=== PATIENT | female | born 1940 | race African-American/Black ===

== ENCOUNTER → 2016-12-16 | Outpatient (CLI) | payer MEDICARE ==
[~2016-12-16] MED LIST: ASPI-482 PO; DILT180C29 PO; ESOM40CA PO; FENO145T PO; IOHEXOL 180 MG/ML 10 ML VIAL. ONE; LOSA25TA4 PO; METF500T4 PO; NAPR220C4 PO; TRAM50TA PO; TRIA1CAP3 PO; methylPREDNISolone ACETATE 40 MG/ML VIAL. ONE; methylPREDNISolone ACETATE 80 MG/ML VIAL. ONE
--- NOTE | 2016-12-17 06:46 | PAIN ---
DATE OF SERVICE: 12/16/2016 DIAGNOSES: Lumbar radiculopathy with lumbar degenerative disk disease and lumbar spinal stenosis. HISTORY OF PRESENT ILLNESS: The patient is a 76-year-old female who returns for followup, last seen in 04/2016. The patient did very well after lumbar epidural steroid injection at that time with about 50% improvement overall. Initially 75%, but now about 50%, and is returning to baseline over the past 2 months or so. The patient reports it is worse with standing and walking; pain across the low back into the bilateral lower extremities, mostly in the lateral and anterior thighs, medial thighs, and into the medial lower legs as well and the knees. The patient reports it is worse with standing, walking, and changing positions. It is aching and dull. She rates 2 to 3 on a scale of 10 currently. It can be as high as an 8 or 9 with the extended walking or standing greater than about 10 to 15 minutes. The patient reports it awakens her from sleep at night, does not affect her bowel or bladder control. No new bowel or bladder incontinence. No new motor or sensory deficits, but significant weakness with the lower extremities, somewhat worse on the right than the left with standing and walking, easy fatigability bilaterally without complete loss of function. The patient reports no new changes. No new bowel or bladder incontinence. PAST MEDICAL HISTORY: Significant for type 2 diabetes, hypertension, arthritis, and recurrent urinary tract infections. PREVIOUS SURGERY: Include hysterectomy. CURRENT MEDICATIONS: Include triamterene, tramadol, Aleve, metformin, Tricor, and diltiazem. ALLERGIES: The patient has no known drug allergies. FAMILY HISTORY: Significant for diabetes, liver disease, strokes, asthma, tuberculosis, heart disease, emphysema, and psychiatric issues. SOCIAL HISTORY: The patient does not smoke, does not drink alcohol. She is retired and lives locally. REVIEW OF SYSTEMS: The patient's review of systems is positive for what is mentioned in history of present illness. All systems were reviewed and otherwise negative. It is complete, full, and well documented on the patient's chart. PHYSICAL EXAMINATION: VITAL SIGNS: Today, blood pressure 136/83, pulse 80, respirations 18, and temperature 97.9 degrees Fahrenheit. Height is 5 feet 2 inches. Weight is 153 pounds. GENERAL: The patient is awake, alert, oriented, appropriate, and very pleasant demeanor. HEENT: Head shows normocephalic, atraumatic. Extraocular movements are intact and symmetrical. The patient wears eyeglasses. Oral cavity, mucous membranes are moist and pink. Dentition is intact. NECK: Shows anterior throat supple without palpable lymphadenopathy noted. Swallow reflex is symmetrical. Neck shows full rotational motion of the cervical spine without difficulty or tenderness including extension and flexion. CHEST: Shows normal on inspection. Breath sounds are clear to auscultation bilaterally. HEART: Shows S1 and S2 clear. No murmurs are auscultated. ABDOMEN: Obese, soft, nontender, and nondistended. No palpable organomegaly is noted. No rebound or guarding demonstrated. BACK: Shows spine grossly midline. Slight exaggeration of thoracic kyphosis and some mild flattening of lumbar lordotic curvature. No previous bruises, lesions, rashes or scars are noted. Lumbar paraspinous musculature shows symmetrical on inspection with palpation. It is moderately tender with palpation diffusely in the low and mid lumbar distribution bilaterally without radiation, without trigger points, and some mild tenderness with palpation over the spinous processes in the lower lumbar distribution, but not over the sacrum or the sacroiliac regions. The patient shows good rotational motion both laterally greater than 10 degrees right and left as well as extension greater than 10 degrees, and forward flexion 45 degrees lumbar spine without significant pain reported. Lower extremities show deep tendon reflexes at 1+ in the patellar, and tendo-calcaneus tendons are equal. Motor exam is strong with dorsiflexion and extension rated at 5 out of 5 and equal, as is quadriceps and hamstring flexion. Peripheral pulses are 1+, posterior tibial and dorsalis pedis pulses. No peripheral edema is noted. No clubbing, no cyanosis. Lower extremities are warm and dry to touch, equal in color and appearance. Straight leg raise noted to be positive bilaterally with pain only in the lateral thighs at about 45 degrees, but is decreased with knee flexion. Gaenslen's and Seamus's maneuvers are negative bilaterally as well. The patient is able to stand, stand on her toes without significant difficulty and walks with a normal-appearing gait, not using any assistive devices such as canes or walkers to ambulate. Options were discussed with the patient. The patient's old chart was reviewed as her current medication regimen was updated. Current review of systems was updated today as well, as noted. We will plan on a lumbar epidural steroid injection today with fluoroscopic guidance, as she did very well with these in the past. Risks were again discussed including, but not limited to bleeding, infection, possibility of epidural hematoma, subsequent neurologic compromise, dural puncture, headaches, spinal cord and/or nerve damage, side effects of steroid medication, and poor results regarding pain control. The patient understands and wishes to proceed. The patient will return to clinic in approximately 2 weeks for followup, was counseled on return appointment, activity level, and side effects to be aware of. DIAGNOSIS: Lumbar radiculopathy with lumbar degenerative disk disease and lumbar spinal stenosis. PROCEDURE: Lumbar epidural steroid injection in translaminar approach at the L4-L5 level using C-arm fluoroscopic guidance under sterile prep and drape using local anesthetic. MEDICATIONS INJECTED: 120 mg Depo-Medrol plus 10 mL of preservative-free normal saline and 2 mL of Isovue contrast. CONDITION AT DISCHARGE: Stable. The patient tolerated the procedure well and had no complications. MARIANNA TELLEZ MD DR: MONROE/bean JOB#: [id number] / [id number]
== END | disposition home or self-care (01) ==
LOC: PNCL 08:33
PROVIDERS: ATTEND Anesthesiology
DX: M51.16 Intervertebral disc disorders with radiculopathy, lumbar region (principal); E11.9 Type 2 diabetes mellitus without complications; I10 Essential (primary) hypertension; M19.90 Unspecified osteoarthritis, unspecified site; N39.0 Urinary tract infection, site not specified
CPT/HCPCS: 62323; J1030; J1040

== ENCOUNTER → 2017-05-26 | Outpatient (CLI) | payer MEDICARE ==
--- NOTE | 2017-05-26 09:49 | PAIN ---
DATE OF SERVICE: 05/26/2017 DIAGNOSES: Lumbar radiculopathy with lumbar degenerative disk disease, lumbar spinal stenosis. HISTORY OF PRESENT ILLNESS: The patient is a 76-year-old female who returns for followup status post lumbar epidural steroid injection x 1, last seen 12/16/2016. The patient reports she did very well with the injection with about 75% improvement initially and now about 50% improvement overall. The pain in the low back and bilateral lower extremities, left greater than right. The patient reports increasing with activity, standing and walking, changing positions, has been waking her from sleep occasionally, but not every night. The patient also has some insomnia, which keeps her up, but not from the pain. The patient reports the pain is sharp and aching and also radiating and tingling. Also has some tingling in the left foot greater than the right. The patient reports the pain about a 3 on a scale of 10 at its worst. The patient reports no new motor or sensory deficits, also some shoulder pain and tingling in her arms. She is seeing her primary care physician for this next week and believes it is due to some of her peripheral diabetic neuropathy. PHYSICAL EXAMINATION: VITAL SIGNS: The patient's blood pressure is 187/104, pulse 88, respirations 20, temperature 98.0 degrees Fahrenheit, height is 5 feet 2 inches, weight 155 pounds. GENERAL: The patient is awake, alert, oriented, appropriate, very pleasant demeanor. HEENT: Head shows normocephalic, atraumatic. Extraocular movements are intact, symmetrical. Oral cavity, mucous membranes are moist and pink. The patient wears eyeglasses. NECK: Shows anterior throat supple without palpable lymphadenopathy noted. Swallow reflex is symmetrical. Neck shows full rotational motion of the cervical spine without difficulty or tenderness including extension and flexion. CHEST: Shows normal on inspection. Breath sounds are clear to auscultation bilaterally. HEART: Shows S1 and S2 clear. No murmurs auscultated. ABDOMEN: Soft, obese, nontender, nondistended. No palpable organomegaly is noted. BACK: Shows spine grossly midline. Slight exaggeration of thoracic kyphosis with a normal appearing lumbar lordotic curvature. Lumbar paraspinous musculature shows symmetrical on inspection. Palpation shows some moderate tenderness and firm musculature throughout the upper, middle and lower distribution of paraspinous muscles diffusely tender, but only to a moderate extent bilaterally without radiation. The patient shows good rotational motion of the lumbar spine, both laterally as well as extension and flexion without difficulty. No tenderness over the sacrum or sacroiliac regions with palpation. LOWER EXTREMITIES: Show deep tendon reflexes 1+ in the patellar and tendo calcaneus tendons are equal. Motor exam is strong with 5/5 dorsiflexion, extension, quadriceps and hamstring flexion are symmetrical. Peripheral pulses are 1+ posterior tibial and dorsalis pedis pulses. Options were discussed with the patient and the patient's old chart was reviewed. Current medication list updated. Current review of systems updated today as well. We will proceed with a lumbar epidural steroid injection second in this series with fluoroscopic guidance. Risks were again discussed including, but not limited to bleeding, infection, possibility of epidural hematoma, subsequent neurologic compromise, dural puncture, headaches, spinal cord and/or nerve damage, side effects of steroid medication and poor results regarding pain control. The patient understands and wishes to proceed. The patient will return to clinic in approximately 2 weeks for followup, was counseled on return appointment, activity level and side effects to be aware of. DIAGNOSIS: Lumbar radiculopathy with lumbar degenerative disk disease, lumbar spinal stenosis. PROCEDURE: Lumbar epidural steroid injection in translaminar approach at the L4-L5 level using C-arm fluoroscopic guidance under sterile prep and drape using local anesthetic. MEDICATION INJECTED: 120 mg Depo-Medrol plus 10 mL of preservative-free normal saline, 2 mL of Isovue contrast. The patient discharged in stable. The patient tolerated the procedure well, had no complications. MARIANNA TELLEZ MD DR: MONROE/bean JOB#: [id number] / [id number]
== END | disposition home or self-care (01) ==
LOC: PNCL 07:59
PROVIDERS: ATTEND Anesthesiology
DX: M51.16 Intervertebral disc disorders with radiculopathy, lumbar region (principal); M48.06 Spinal stenosis, lumbar region
CPT/HCPCS: 62323; J1030; J1040

== ENCOUNTER → 2018-02-14 | Outpatient (CLI) | payer MEDICARE ==
[~2018-02-14] MED LIST changes: -ASPI-482 PO; -DILT180C29 PO; -ESOM40CA PO; -FENO145T PO; +IOHEXOL 180 MG/ML 10 ML VIAL.; -IOHEXOL 180 MG/ML 10 ML VIAL. ONE; -LOSA25TA4 PO; -METF500T4 PO; -NAPR220C4 PO; -TRAM50TA PO; -TRIA1CAP3 PO; +methylPREDNISolone ACETATE 40 MG/ML VIAL.; -methylPREDNISolone ACETATE 40 MG/ML VIAL. ONE; +methylPREDNISolone ACETATE 80 MG/ML VIAL.; -methylPREDNISolone ACETATE 80 MG/ML VIAL. ONE
== END ==
LOC: PNCL 10:11
DX: M51.16 Intervertebral disc disorders with radiculopathy, lumbar region (principal); M48.061 Spinal stenosis, lumbar region without neurogenic claudication
CPT/HCPCS: 62323; J1030; J1040; Q9965

== ENCOUNTER → 2018-04-18 | Outpatient (CLI) | payer MEDICARE ==
[~2018-04-18] MED LIST changes: +LIDOCAINE 1% PF 2 ML VIAL.
== END | disposition home or self-care (01) ==
LOC: PNCL 10:52
DX: M51.16 Intervertebral disc disorders with radiculopathy, lumbar region (principal); M48.061 Spinal stenosis, lumbar region without neurogenic claudication
CPT/HCPCS: 62323; J1030; J1040; Q9965

== ENCOUNTER → 2018-08-15 | Outpatient (CLI) | payer MEDICARE ==
[~2018-08-15] MED LIST changes: +ASPI-482 PO; +ATOR10TA60 PO; +DILT180C29 PO; +ESOM40CA PO; +FENO145T PO; -IOHEXOL 180 MG/ML 10 ML VIAL.; +IOHEXOL 180 MG/ML 10 ML VIAL. ONE; -LIDOCAINE 1% PF 2 ML VIAL.; +LIDOCAINE 1% PF 2 ML VIAL. ONE; +LOSA25TA5 PO; +METF500T16 PO; +NAPR220C4 PO; +TRAM50TA PO; +TRIA1CAP3 PO; -methylPREDNISolone ACETATE 40 MG/ML VIAL.; +methylPREDNISolone ACETATE 40 MG/ML VIAL. ONE; -methylPREDNISolone ACETATE 80 MG/ML VIAL.; +methylPREDNISolone ACETATE 80 MG/ML VIAL. ONE
--- NOTE | 2018-08-16 05:15 | PAIN ---
DATE OF SERVICE: 08/15/2018 DIAGNOSES: Lumbar radiculopathy with lumbar degenerative disk disease and lumbar spinal stenosis. HISTORY OF PRESENT ILLNESS: The patient is a 77-year-old female, returns for followup status post lumbar epidural steroid injection x 2, last seen in 04/18/2018. The patient did very well with about 50% improvement for the first 2 months. The patient reports the pain has been returning now in the low back and the right lower extremity, mostly in the posterior and lateral thigh, lateral anterior thigh, medial thigh to the knee on the right side. The patient reports it is an 8 on a scale of 10 at its worst, 5 on average, 4 at its least and is a 4 today. The patient reports she was initially increasing her activity with greater ease and comfort, walking greater distances, able to get around better, doing things at home with greater ease and comfort. The patient reports she has been able to sleep at night. The pain does not awaken her from sleep, although she does have some insomnia. The patient reports no new motor or sensory deficits. No new bowel or bladder incontinence. The patient reports the pain is sharp, also aching and shooting in the right leg. PHYSICAL EXAMINATION: VITAL SIGNS: The patient's blood pressure is 132/86, pulse 84, respirations 16, temperature 99.3 degrees Fahrenheit, weight is 146 pounds. GENERAL: The patient is awake, alert, oriented, appropriate, very pleasant demeanor. HEENT: Shows normocephalic, atraumatic. Extraocular movements are intact and symmetrical. Oral cavity: Mucous membranes moist and pink. Dentition is intact. NECK: Shows anterior throat supple without palpable lymphadenopathy noted. Swallow reflex is symmetrical. CHEST: Shows normal with inspection. Breath sounds are clear to auscultation bilaterally. HEART: Shows S1, S2 clear. No murmurs auscultated. ABDOMEN: Soft, nontender, nondistended. No palpable organomegaly is noted. No rebound or guarding demonstrated. BACK: Shows spine grossly in the midline. Normal appearing thoracic kyphosis, some minor flattening of lumbar lordotic curvature. Lumbar paraspinous muscle shows symmetrical on inspection. On palpation shows some moderate tenderness diffusely with palpation in the low lumbar distribution without radiation, without trigger points. EXTREMITIES: The patient's lower extremities show deep tendon reflexes at 1+ in the patellar and tendo calcaneus tendons. Motor exam is strong with 5/5 dorsiflexion, extension, quadriceps and hamstring flexion and symmetrical. Peripheral pulses are 1+ posterior tibia. No peripheral edema is noted bilaterally. Options were discussed with the patient. The patient's old chart was reviewed as is her current medication regimen updated. Current review of systems is updated today as well. We will proceed with a third in the series of lumbar epidural steroid injection today with fluoroscopic guidance. Risks were again discussed including, but not limited to bleeding, infection, possibility of epidural hematoma and subsequent neurological compromise, dural puncture, headaches, spinal cord and/or nerve damage, side effects of steroid medication and poor results regarding pain control. The patient understands and wished to proceed. The patient will return to the clinic in approximately 2 weeks for followup, was counseled on return appointment, activity level and side effects to be aware of. DIAGNOSIS: Lumbar radiculopathy with lumbar degenerative disk disease, lumbar spinal stenosis. PROCEDURE: Lumbar epidural steroid injection, translaminar approach at the L4-L5 level using C-arm fluoroscopic guidance under sterile prep and drape using local anesthetic. MEDICATION INJECTED: A total of 120 mg Depo-Medrol plus 10 mL of preservative-free normal saline and 2 mL of Isovue for contrast. CONDITION AT DISCHARGE: Stable. The patient tolerated the procedure well, had no complications. MARIANNA TELLEZ MD DR: MONROE/bean JOB#: [id number] / [id number]
== END | disposition home or self-care (01) ==
LOC: PNCL 11:41
PROVIDERS: ATTEND Anesthesiology
DX: M51.16 Intervertebral disc disorders with radiculopathy, lumbar region (principal); M48.061 Spinal stenosis, lumbar region without neurogenic claudication
CPT/HCPCS: 62323; J1030; J1040; Q9965

== ENCOUNTER → 2018-12-26 | Outpatient (CLI) | payer MEDICARE ==
[~2018-12-26] MED LIST changes: -LIDOCAINE 1% PF 2 ML VIAL. ONE; -LOSA25TA5 PO; +LOSA25TA54 PO
--- NOTE | 2018-12-26 21:41 | PAIN ---
DATE OF SERVICE: 12/26/2018 PROGRESS NOTE FOR PAIN CLINIC DIAGNOSES: Lumbar radiculopathy with lumbar degenerative disk disease and lumbar spinal stenosis. HISTORY OF PRESENT ILLNESS: The patient is a 78-year-old female who returns for followup status post lumbar epidural steroid injections, most recently on 08/15/2018. The patient did very well. There was about a 75% improvement. The patient reports it is still helping to some extent with the pain returning in the low back, right lower extremity, mostly in the posterior gluteus, posterolateral thigh, lateral anterior thigh, medial thigh and to the knee on the right side. The patient reports it is a 5 on a scale of 10 at its worst, 4 on average and 3 at its least and is a 4 today. The patient reports it is sharp, aching, sometimes dull and shooting, can be throbbing and stabbing as well, radiating, worse with walking, standing and changing positions and better with sitting or lying down. It does not awaken her from sleep, but she had difficulty sleeping besides the pain and not from it. The patient reports no new motor or sensory deficits, no new bowel or bladder incontinence or other complaints. PHYSICAL EXAMINATION: VITAL SIGNS: The patient's blood pressure 151/91, pulse 91, respirations 18, temperature 98.5 degrees Fahrenheit and weight is 144 pounds. GENERAL: The patient is awake, alert, oriented, appropriate, very pleasant demeanor. HEENT: Head shows normocephalic and atraumatic. Extraocular movements are intact and symmetrical. Oral cavity: Mucous membranes are moist and pink. Dentition is intact. NECK: Shows anterior throat is supple without palpable lymphadenopathy noted. Swallow reflex is symmetrical. CHEST: Shows normal on inspection. Breath sounds are clear to auscultation bilaterally. HEART: Shows S1 and S2 clear. No murmurs are auscultated. ABDOMEN: Soft, nontender and nondistended. No palpable organomegaly is noted. No rebound or guarding demonstrated. BACK: Shows spine grossly in the midline. Normal appearing thoracic kyphosis and lumbar lordotic curvature slightly flattened. Lumbar paraspinous muscle shows symmetrical on inspection. On palpation shows some moderate tenderness diffusely in the bilateral lower lumbar paraspinous musculature without radiation. The patient has good rotational motion of the lumbar spine both laterally as well as extension and flexion without significant difficulty. EXTREMITIES: Lower extremities show deep tendon reflexes at 1+ in the patellar and tendo calcaneus tendons are equal. Motor exam is strong with a 5/5 dorsiflexion, extension, quadriceps and hamstring flexion and symmetrical. Peripheral pulses are 1+ posterior tibial. No peripheral edema is noted. Options were discussed with the patient. The patient's old chart was reviewed as was her current medication regimen updated. Current review of systems updated today as well. We will proceed with a first in the series of lumbar epidural steroid injections under fluoroscopic guidance. Risks were again discussed including, but not limited to bleeding, infection, possibility of epidural hematoma, subsequent neurological compromise, dural puncture, headaches, spinal cord and/or nerve damage, side effects of steroid medication and poor results regarding pain control. The patient understands and wished to proceed. The patient will return to the clinic in approximately 2 weeks for followup, was counseled as to return appointment, activity level and side effects to be aware of. DIAGNOSIS: Lumbar radiculopathy with lumbar degenerative disk disease and lumbar spinal stenosis. PROCEDURE: Lumbar epidural steroid injection, translaminar approach at L4-L5 level using C-arm fluoroscopic guidance under sterile prep and drape using local anesthetic. MEDICATION INJECTED: A total of 120 mg Depo-Medrol plus 10 mL of preservative-free normal saline and 2 mL of Isovue for contrast. CONDITION AT DISCHARGE: Stable. The patient tolerated the procedure well and had no complications. MARIANNA TELLEZ MD DR: MONROE/bean JOB#: [id number] / [id number]
== END | disposition home or self-care (01) ==
LOC: PNCL 08:27
PROVIDERS: ATTEND Anesthesiology
DX: M51.16 Intervertebral disc disorders with radiculopathy, lumbar region (principal); M48.061 Spinal stenosis, lumbar region without neurogenic claudication
CPT/HCPCS: 62323; J1030; J1040; Q9965

== ENCOUNTER → 2019-06-25 | Outpatient (CLI) | payer MEDICARE ==
--- NOTE | 2019-06-25 09:36 | PAIN ---
DATE OF SERVICE: 06/25/2019 PROGRESS NOTE FOR PAIN CLINIC DIAGNOSES: Lumbar radiculopathy with lumbar spinal stenosis, lumbar degenerative disk disease. HISTORY OF PRESENT ILLNESS: The patient is a 78-year-old female who returns for followup status post lumbar epidural steroid injection, last seen 12/26/2018. The patient did very well, about 75% improvement for the first 3 months or so, then the pain again returned in the low back and right lower extremity, mostly in the posterior gluteus, posterolateral thigh, lateral anterior thigh, medial thigh and the medial lower leg. The patient reports it is worse with walking, standing, changing positions, better with sitting or lying down. The patient reports no new motor or sensory deficits, does not awaken her from sleep at night. The patient rates her pain as a 4 on a scale of 10 on average, 7 at its worst and a 2 at its least and is a 2 today. The patient reports it is stabbing and aching across the low back into the right leg. The patient reports no new motor or sensory deficits, no new bowel or bladder incontinence or other complaints. PHYSICAL EXAMINATION: VITAL SIGNS: The patient's blood pressure is 143/76, pulse 74, respirations are 18, temperature 98.2 degrees Fahrenheit, height is 5 feet 2 inches, weighs 147 pounds. GENERAL: The patient is awake, alert, oriented, appropriate, very pleasant demeanor. HEENT: Head shows normocephalic, atraumatic. Extraocular movements are intact and symmetrical. Oral cavity: Mucous membranes moist and pink. Dentition is intact. NECK: Shows anterior throat supple. Swallow reflex symmetrical. Neck shows full rotational motion of cervical spine. CHEST: Shows normal on inspection. Breath sounds are clear bilaterally. HEART: Shows S1, S2 clear. No murmurs auscultated. ABDOMEN: Soft, nontender, nondistended. BACK: Shows spine grossly in the midline. Slight exaggeration of thoracic kyphosis, minor flattening of lumbar lordotic curvature. Lumbar paraspinous muscle shows symmetrical on inspection, with palpation shows some moderate tenderness diffusely bilaterally, but only diffusely without radiation. The patient has good rotational motion of lumbar spine, both laterally as well as extension and flexion without significant difficulty. EXTREMITIES: Lower extremities show deep tendon reflexes at 1+ in the patellar and tendo calcaneus tendons. Motor exam is strong with 5/5 dorsiflexion, extension, quadriceps and hamstring flexion symmetrical. Peripheral pulses are 1+ posterior tibia. No peripheral edema is noted. Options were discussed with the patient. The patient's old chart was reviewed as her current medication regimen updated. Current review of systems updated today as well. We will proceed with a first in a series of lumbar epidural steroid injection today with fluoroscopic guidance. Risks were again discussed including, but not limited to bleeding, infection, possibility of epidural hematoma, subsequent neurological compromise, dural puncture, headaches, spinal cord and/or nerve damage, side effects of steroid medication and poor results regarding pain control. The patient understands and wished to proceed. The patient will return to clinic in approximately 2 weeks for followup. She was counseled on return appointment, activity level and side effects to be aware of. DIAGNOSES: Lumbar radiculopathy with lumbar degenerative disk disease and lumbar spinal stenosis. PROCEDURE: Lumbar epidural steroid injection, translaminar approach L4-L5 level using C-arm fluoroscopic guidance under sterile prep and drape using local anesthetic. MEDICATION INJECTED: The patient received a total of 120 mg Depo-Medrol plus 10 mL of preservative-free normal saline and 2 mL of contrast. CONDITION AT DISCHARGE: Stable. The patient tolerated procedure well, had no complications. MARIANNA TELLEZ MD DR: MONROE/bean JOB#: [id number] / [id number]
== END ==
LOC: PNCL 08:29
PROVIDERS: ATTEND Anesthesiology
DX: M51.16 Intervertebral disc disorders with radiculopathy, lumbar region (principal); M48.061 Spinal stenosis, lumbar region without neurogenic claudication
CPT/HCPCS: 62323; J1030; J1040; Q9965

== ENCOUNTER → 2019-12-07 | Outpatient (CLI) | payer MEDICARE ==
--- NOTE | 2019-12-07 12:50 | PAIN ---
DATE OF SERVICE: 12/07/2019 PROGRESS NOTE FOR PAIN CLINIC DIAGNOSES: Lumbar radiculopathy with lumbar spinal stenosis, lumbar degenerative disk disease. HISTORY OF PRESENT ILLNESS: The patient is a 79-year-old female who returns for followup status post lumbar epidural steroid injections, most recently seen on 06/25/2019. The patient had epidural steroid injection at that time with good results about 75% improvement. The patient reports pains are returning now in the low back, especially in the right leg, posterior gluteus, posterior thigh and lateral thigh. The patient reports it is worse with walking, standing, changing positions, then returning fairly significantly for the past 2 months or so. The patient reports that initially she was doing better with greater ease in walking and standing, returning to household activities and traveling. The pains are returning now in the low back and right leg. The patient reports it is a 7 on a scale of 10 at its worst, 6 on average, 3 at its least and is a 6 today. The patient reports it is sharp and aching, shooting in the right leg, posterior gluteus and lateral thigh with weightbearing, standing and walking. The patient reports it awakens her from sleep about every 3 hours and has for the past 2 months or so. The patient reports no new motor or sensory deficits, no new bowel or bladder incontinence. PHYSICAL EXAMINATION: VITAL SIGNS: The patient's blood pressure is 137/91, pulse 90, respirations 18, temperature 99.2 degrees Fahrenheit, weight is 147 pounds. GENERAL: The patient is awake, alert, oriented, appropriate, very pleasant demeanor. HEENT: Shows normocephalic, atraumatic. Extraocular movements are intact and symmetrical. Oral cavity: Mucous membranes moist and pink. Dentition is intact. NECK: Shows anterior throat supple without palpable lymphadenopathy noted. Swallow reflex symmetrical. CHEST: Shows normal on inspection. Breath sounds clear to auscultation bilaterally. HEART: Shows S1, S2 clear. No murmurs auscultated. ABDOMEN: Soft, nontender, nondistended. No palpable organomegaly is noted. No rebound or guarding demonstrated. BACK: Shows spine grossly in the midline. Normal appearing thoracic kyphosis. Some slight flattening of lumbar lordotic curvature. Lumbar paraspinous muscle shows symmetrical on inspection, on palpation shows some moderate tenderness diffusely bilaterally going diffusely without significant radiation. EXTREMITIES: The patient's lower extremities show deep tendon reflexes at 1+ in the patellar and tendo calcaneus tendons. Motor exam is strong with 5/5 dorsiflexion, extension, quadriceps and hamstring flexion. Peripheral pulses are 1+ posterior tibia. No peripheral edema is noted. Options were discussed with the patient. The patient's old chart was reviewed as her current medication regimen updated. Current review of systems updated today as well. We will proceed with a lumbar epidural steroid injection today with fluoroscopic guidance, first in the series. Risks were again discussed including, but not limited to bleeding, infection, possibility of epidural hematoma, subsequent neurological compromise, dural puncture, headaches, spinal cord and/or nerve damage, side effects of steroid medication and poor results regarding pain control. The patient understands and wished to proceed. The patient will return to clinic in approximately 2 weeks for followup. She was counseled on return appointment, activity level and side effects to be aware of. DIAGNOSES: Lumbar radiculopathy with lumbar degenerative disk disease, lumbar spinal stenosis. PROCEDURE: Lumbar epidural steroid injection, caudal approach using C-arm fluoroscopic guidance under sterile prep and drape using local anesthetic. MEDICATION INJECTED: A total of 120 mg Depo-Medrol plus 10 mL of preservative-free normal saline and 2 mL of contrast. The patient noted to have on the first attempt at L4-L5 translaminar CSF spread of the contrast. Needle was moved to the L5-S1 with good preservative-free normal saline, loss of resistance once again and negative aspiration at the L4-L5 level, but with still spread into the cerebrospinal fluid with contrast on both these attempts, this was converted to a caudal approach with 22-gauge needle in the sacral hiatus with good epidural spread of the contrast 2 mL on caudal approach attempt without washout. Noted the patient did have a positional headache immediately following the procedure and was kept in a supine position and eventually was discharged under her own power without significant headache and with her son present to drive her home as well. MARIANNA TELLEZ MD DR: MONROE/bean JOB#: [id number] / [id number]
== END | disposition home or self-care (01) ==
LOC: PNCL 10:17
PROVIDERS: ATTEND Anesthesiology
DX: M51.16 Intervertebral disc disorders with radiculopathy, lumbar region (principal); M48.061 Spinal stenosis, lumbar region without neurogenic claudication; Z98.890 Other specified postprocedural states
CPT/HCPCS: 62323; J1030; J1040; Q9965

== ENCOUNTER → 2020-04-16 | Outpatient (CLI) | payer MEDICARE ==
--- NOTE | 2020-04-16 10:24 | PAIN ---
DATE OF SERVICE: 04/16/2020 PROGRESS NOTE FOR PAIN CLINIC DIAGNOSES: Lumbar radiculopathy with lumbar degenerative disk disease and lumbar spinal stenosis. HISTORY OF PRESENT ILLNESS: The patient is a 79-year-old female who returns for followup status post lumbar epidural steroid injection with caudal approach on 12/07/2019. The patient did very well with about 80% improvement for about the first 5 months. The patient reports pain is returning now only over the past few weeks or so. The patient reports no new motor or sensory deficits, no new changes, but still has pain in the low back, more on the right side in the posterior gluteus, lateral thigh, anterior thigh, medial thigh on the right, worse with walking, standing, changing positions. Initially, she was doing much better with distance walking, doing working and household activities with greater ease and comfort, sleeping better at night. Now, the pain is beginning to awaken her over the past week or so for about every 2-3 hours in the low back and the right leg. The patient reports she is still feeling fatigued with activity over the past week or so as well. The patient reports the pain is a 6 on a scale of 10 at its worst, average and 3 at its least and is a 6 today. The patient reports it is sharp and aching, shooting pain in the right leg at times as well with activity, but better with sitting or lying down. The patient reports no new motor or sensory deficits, no new bowel or bladder incontinence or other complaints. PHYSICAL EXAMINATION: VITAL SIGNS: The patient's blood pressure is 170/72, pulse is 81, respirations are 18, temperature 98.2 degrees Fahrenheit, height is 5 feet 2 inches, weight is 148 pounds. GENERAL: The patient is awake, alert, oriented, appropriate, very pleasant demeanor. HEENT: Shows normocephalic, atraumatic. Extraocular movements are intact and symmetrical. Oral cavity: Mucous membranes moist and pink. NECK: Shows anterior throat supple without palpable lymphadenopathy noted. Swallow reflex symmetrical. CHEST: Shows normal on inspection. Breath sounds are clear bilaterally. No rales, rhonchi or wheezes auscultated. HEART: Shows S1, S2 clear. No murmurs auscultated. ABDOMEN: Soft, obese, nontender, nondistended. BACK: Shows spine grossly in the midline. Slight exaggeration of thoracic kyphosis and some minor flattening with a lumbar lordotic curvature. Lumbar paraspinous muscle shows symmetrical on inspection, with palpation shows some diffuse tenderness throughout the upper, middle and lower distribution of paraspinous muscles bilaterally and roughly symmetrical without evidence of atrophy or hypertrophy, no asymmetry, no tenderness over the spinous processes, sacrum or sacroiliac regions. The patient has good rotational motion of lumbar spine, both laterally greater than 10 degrees right and left as well as extension past 10 degrees, forward flexion 45 degrees without increase in pain. EXTREMITIES: The patient's lower extremities show deep tendon reflexes at 1+ in the patellar and tendo calcaneus tendons. Motor exam is 5/5 with dorsiflexion, extension and equal. Peripheral pulses are 1+ posterior tibia. No peripheral edema bilaterally. Options were discussed with the patient. The patient's old chart was reviewed as her current medication regimen updated. Current review of systems updated today as well. We will proceed with a second in the series of lumbar epidural steroid injection today with fluoroscopic guidance. Risks were again discussed including, but not limited to bleeding, infection, possibility of epidural hematoma, subsequent neurological compromise, dural puncture, headaches, spinal cord and/or nerve damage, side effects of steroid medication and poor results regarding pain control. The patient understands and wished to proceed. The patient will return to clinic in approximately 2 weeks for followup. She was counseled on return appointment, activity level and side effects to be aware of. DIAGNOSES: Lumbar radiculopathy with lumbar spinal stenosis, lumbar degenerative disk disease. PROCEDURE: Lumbar epidural steroid injection, translaminar approach at the L4-L5 level using C-arm fluoroscopic guidance under sterile prep and drape using local anesthetic. MEDICATION INJECTED: A total of 120 mg Depo-Medrol plus 10 mL of preservative-free normal saline and 2 mL of contrast. CONDITION AT DISCHARGE: Stable. The patient tolerated the procedure well, had no complications. MARIANNA TELLEZ MD DR: MONROE/bean JOB#: [id number] / [id number]
== END ==
LOC: PNCL 09:26
PROVIDERS: ATTEND Anesthesiology
DX: M51.16 Intervertebral disc disorders with radiculopathy, lumbar region (principal); M48.061 Spinal stenosis, lumbar region without neurogenic claudication
CPT/HCPCS: 62323; J1030; J1040; Q9965

== ENCOUNTER → 2020-08-19 | Outpatient (CLI) | payer MEDICARE ==
--- NOTE | 2020-08-19 11:42 | PDOC ---
Progress Note - Pain Clinic Date of Service: DOS: DATE: 08/19/20 TIME: 11:38 Diagnosis: Dx: Lumbar radiculopathy with lumbar degenerative disc disease and lumbar spinal stenosis History or Present Illness: HPI: 79-year-old female returns follow-up status post lumbar epidural steroid injection x2 most recently 12/17/2019. Patient did very well with about 80% improvement initially with pain returning in the low back and the right lower extremity as it was previously posterior gluteus posterior lateral thigh lateral anterior thigh anterior medial thigh described as burning and stabbing in the low back and radiating cramping in the right leg as well. Patient reports a 7 on scale 10 is average over the past week 9 is worst and a 3 at its least is a 7 today. Patient reports no new motor or sensory deficits no new bowel or bladder incontinence or other complaints. Reports its better with sitting or laying down but can awaken her from sleep occasionally but not most nights patient reports initially she was doing much better with distance walking doing household activities try with greater ease and comfort now the pain is returning as described. Physical Exam: VS: Blood pressure is 139/64 pulse 94 respirations 18 temperature is 98.6 F height 5 feet 2 inches weight is 148 pounds PE: PHYSICAL EXAMINATION: GENERAL: The patient is awake, alert, oriented, appropriate, very pleasant demeanor HEENT: Shows normocephalic, atraumatic. Extraocular movements are intact and symmetrical. Oral cavity: Mucous membranes moist and pink. NECK: Shows anterior throat supple without palpable lymphadenopathy noted. Swal low reflex symmetrical. CHEST: Shows normal on inspection. Breath sounds are clear bilaterally, no rales rhonchi wheezes auscultated. HEART: Shows S1, S2 clear. No murmurs auscultated. ABDOMEN: Soft, nontender, nondistended, obese. No palpable organomegaly is noted. No rebound or guarding demonstrated. BACK: Shows spine grossly in the midline. Normal-appearing cervical lordotic curvature. There is slightly increased thoracic kyphosis, some minor flattening of the lumbar lordotic curvature. Lumbar paraspinous muscles show symmetrical on inspection, on palpation shows some moderate tenderness diffusely throughout the upper, middle and lower distribution of the paraspinous muscles bilaterally, without specific trigger points, without radiation of pain. The patient has good rotational motion of the lumbar spine, both laterally as well as extension and flexion without significant difficulty. No tenderness over the spinous processes, sacrum or sacroiliac regions. EXTREMITIES: Lower extremities show deep tendon reflexes 1+ in the patellar and tendo calcaneus tendons. Motor exam is 5 on a scale of 5 with right dorsiflexion, extension, quadriceps and hamstring flexion and 5/5 on the left. Peripheral pulses are 1 posterior tibial. No peripheral edema is noted bilaterally. Lower extremities are warm and dry to touch, equal in color and appearance. SKIN: Shows warm and dry, good turgor. No edema. No sores, rashes or bruising throughout. Procedure: Procedure: Options were discussed with the patient. Patient's old chart was reviewed as her current medication regimen updated current review of systems updated today as well. We will proceed with a first in the series lumbar epidural steroid injection today with fluoroscopic guidance. Risks were discussed including but not limited to: Bleeding, infection, possibility of epidural hematoma and subsequent neurological compromise, dural puncture, headaches, spinal cord and/or nerve damage, side effects of steroid medication, and poor results regarding pain control. Patient understands wished to proceed. Patient will return to the clinic in approximate 2 weeks for follow-up was counseled as to return appointment activity level and side effects to be aware of. Medication Injected: Med Injected: Procedure is lumbar epidural steroid injection under local anesthetic using sterile prep and drape at the L4-5 level using C-arm fluoroscopic guidance in both AP and lateral views medications injected is 120 mg Depo-Medrol + 10 mL preservative-free normal saline and 2 mL contrast- condition at discharge is stable patient tolerated procedure well had no complications. Condition at Discharge: Condition at Discharge: Condition at discharge is stable patient tolerated the procedure well had no complications. MARIANNA TELLEZ MD Aug 19, 2020 11:42
== END ==
LOC: PNCL 10:31
PROVIDERS: ATTEND Anesthesiology
DX: M48.061 Spinal stenosis, lumbar region without neurogenic claudication (principal); Z79.899 Other long term (current) drug therapy
CPT/HCPCS: 62323; J1030; J1040; Q9965

== ENCOUNTER → 2021-01-29 | Outpatient (CLI) | payer MEDICARE ==
--- NOTE | 2021-01-29 09:38 | PDOC ---
Progress Note - Pain Clinic Date of Service: DOS: DATE: 01/29/21 TIME: 09:35 Diagnosis: Dx: Lumbar radiculopathy with lumbar degenerative disc disease and lumbar spinal stenosis History or Present Illness: HPI: 80-year-old female returns for follow-up status post lumbar epidural steroid traction x1. Last seen August 19, 2020 patient did very well with about a 50% improvement for several months following the injection patient reports now the pain is returning in the low back and right lower extremity posterior gluteus posterior lateral thigh lateral anterior thigh anteromedial thigh and across the low back patient reports initially she did very well with distance walking and household activities travel with greater ease and comfort sleeping better at night now is waking her from sleep about once every 3 hours over the past 2 to 3 weeks patient ports across the low back into the right lower extremity as well worse with walking and standing. Patient reports no new motor or sensory deficits no new bowel or bladder incontinence rates her pain is a 5 on a scale of 10 over the past week at all times worst least and average and is a 5 today patient describes as aching and shooting in the right leg. Physical Exam: VS: Blood pressure is 145/98 pulse 81 respirations 16 temperature 98.2 F height is 5 feet 2 inches weight is 142 pounds PE: PHYSICAL EXAMINATION: GENERAL: The patient is awake, alert, oriented, appropriate, very pleasant demeanor HEENT: Shows normocephalic, atraumatic. Extraocular movements are intact and symmetrical. Oral cavity: Mucous membranes moist and pink. Dentition is intact. NECK: Shows anterior throat supple without palpable lymphadenopathy noted. Swallow reflex symmetrical. CHEST: Shows normal on inspection. Breath sounds are clear bilaterally, no rales or rhonchi bilaterally. HEART: Shows S1, S2 clear. No murmurs auscultated. ABDOMEN: Soft, nontender, nondistended, obese. No palpable organomegaly is noted. No rebound or guarding demonstrated. BACK: Shows spine grossly in the midline. Normal-appearing cervical lordotic curvature. There is increased thoracic kyphosis, some minor flattening of the lumbar lordotic curvature. Lumbar paraspinous muscles show symmetrical on inspection, on palpation shows some moderate tenderness diffusely throughout the upper, middle and lower distribution of the paraspinous muscles, but without specific trigger points, without radiation of pain. The patient has good rotational motion of the lumbar spine, both laterally as well as extension and flexion without significant difficulty. EXTREMITIES: Lower extremities show deep tendon reflexes 1+ in the patellar and tendo calcaneus tendons. Motor exam is 5 on a scale of 5 with right dorsiflexion, extension, quadriceps and hamstring flexion and 5/5 on the left. Peripheral pulses are 1+ posterior tibial. No peripheral edema is noted bilaterally. Lower extremities are warm and dry to touch, equal in color and appearance. SKIN: Shows warm and dry, good turgor. No edema. No sores, rashes or bruising throughout. Procedure: Procedure: Options were discussed with the patient. Patient chart reviews her current medication regimen updated current review of systems updated today as well. We'll proceed with a lumbar epidural steroid injection today with fluoroscopic guidance. Risks were discussed including but not limited to: Bleeding, infection, possibility of epidural hematoma and subsequent neurological compromise, dural puncture, headaches, spinal cord and/or nerve damage, side effects of steroid medication, and poor results regarding pain control. Patient understands and wished to proceed. Patient return to the clinic in approximate 2 weeks for follow-up, was counseled as to return appointment activity level and side effects to be aware of. Medication Injected: Med Injected: Procedure is lumbar epidural steroid injection under local anesthetic using sterile prep and drape at the L4-5 level using C-arm fluoroscopic guidance in both AP and lateral views medications injected is 120 mg Depo-Medrol + 10 mL preservative-free normal saline and 2 mL contrast- condition at discharge is stable patient tolerated procedure well had no complications. Condition at Discharge: Condition at Discharge: Condition at discharge stable, patient already procedure well and had no complications. MARIANNA TELLEZ MD Jan 29, 2021 09:38
--- NOTE | 2021-01-29 09:38 | PDOC4 ---
PROCEDURE Procedure Patient was consented for lumbar epidural steroid injection. Risks were dis cussed including but not limited to: Bleeding, infection, possibility of epidural hematoma and subsequent neurological compromise, dural puncture, headaches, spinal cord and/or nerve damage, side effects of steroid medication, and poor results regarding pain control. Patient understands and wished to proceed. Procedure is lumbar epidural steroid injection under local anesthetic using sterile prep and drape at the L4-5 level using C-arm fluoroscopic guidance in both AP and lateral views medications injected is 120 mg Depo-Medrol + 10 mL preservative-free normal saline and 2 mL contrast- condition at discharge is stable patient tolerated procedure well had no complications. MARIANNA TELLEZ MD Jan 29, 2021 09:38
== END | disposition home or self-care (01) ==
LOC: PNCL 08:52
PROVIDERS: ATTEND Anesthesiology
DX: M51.16 Intervertebral disc disorders with radiculopathy, lumbar region (principal); M48.061 Spinal stenosis, lumbar region without neurogenic claudication; Z98.890 Other specified postprocedural states
CPT/HCPCS: 62323; J1030; J1040; Q9965

== ENCOUNTER → 2021-06-01 | Outpatient (CLI) | payer MEDICARE ==
--- NOTE | 2021-06-01 09:53 | PDOC ---
Progress Note - Pain Clinic Date of Service: DOS: DATE: 06/01/21 TIME: 09:49 Diagnosis: Dx: Lumbar radiculopathy with lumbar spinal stenosis and lumbar degenerative disc disease History or Present Illness: HPI: 80-year-old female returns for follow-up status post lumbar epidural steroid injection January 29, 2021. Patient reports did very well about 75% improvement that for the first 2 months now about 50% provement overall still helping in the low back and the right leg the pain is returning however in the right lower extremity posterior gluteus posterior lateral thigh anterior thigh anterior medial thigh medial lower leg worse with sitting standing walking no pain with lying down patient reports with changing positions he notices it most time she can sit decrease the pain when she sits for too long. Greater than 30 minutes that it may return but lying down she has no pain and is not awaken her from sleep at night patient reports the pain is a 7 on scale 10 is worse over the past week 5 on average 5 its least is a 5 today patient scribes as sharp and achy in the low back and right lower extremity shooting and stabbing as well can be burning in the leg but only rarely patient reports no new motor or sensory deficits no bowel or bladder incontinence. Patient reports he is taking X strength Tylenol which does decrease the pain by about 50% as well. Physical Exam: VS: Blood pressure is 133/80 pulse 96 respirations 18 temperature 98.3 F height is 5 feet 2 inches weight is 144 pounds PE: PHYSICAL EXAMINATION: GENERAL: The patient is awake, alert, oriented, appropriate, very pleasant in demeanor HEENT: Shows normocephalic, atraumatic. Extraocular movements are intact and symmetrical. Oral cavity: Mucous membranes moist and pink. NECK: Shows anterior throat supple without palpable lymphadenopathy noted. Swallow reflex symmetrical. CHEST: Shows normal on inspection. Breath sounds are clear bilaterally, distant but no rales or rhonchi. HEART: Shows S1, S2 clear. No murmurs auscultated. ABDOMEN: Soft, nontender, nondistended, obese. No palpable organomegaly is noted. BACK: Shows spine grossly in the midline. Normal-appearing cervical lordotic curvature. There is slightly increased thoracic kyphosis, some minor flattening of the lumbar lordotic curvature. Lumbar paraspinous muscles show symmetrical on inspection, on palpation shows some moderate tenderness diffusely throughout the upper, middle and lower distribution of the paraspinous muscles, but without specific trigger points, without radiation of pain. The patient has good rotational motion of the lumbar spine, both laterally as well as extension and flexion without significant difficulty. No tenderness over the spinous processes, sacrum or sacroiliac regions. EXTREMITIES: Lower extremities show deep tendon reflexes 1+ in the patellar and tendo calcaneus tendons. Motor exam is 5 on a scale of 5 with right dorsiflexion, extension, quadriceps and hamstring flexion and 5/5 on the left. Peripheral pulses are 1+ posterior tibial. No peripheral edema is noted bilaterally. Lower extremities are warm and dry to touch, equal in color and appearance. SKIN: Shows warm and dry, good turgor. No edema. No sores, rashes or bruising throughout. Procedure: Procedure: Options discussed with patient. Patient chart reviews her current medication regimen updated current review of systems updated today as well. We will proceed with a lumbar epidural steroid injection today with fluoroscopic guidance. Risks were discussed including but not limited to: Bleeding, infection, possibility of epidural hematoma and subsequent neurological compromise, dural puncture, headaches, spinal cord and/or nerve damage, side effects of steroid medication, and poor results regarding pain control. Patient understands and wished to proceed. Patient will return to clinic in approximate 2 weeks for follow-up, to the level and side effects to be aware of. Medication Injected: Med Injected: Procedure is lumbar epidural steroid injection under local anesthetic using sterile prep and drape at the L4-5 level using C-arm fluoroscopic guidance in both AP and lateral views medications injected is 120 mg Depo-Medrol +10mL preservative-free normal saline and 2 mL contrast- condition at discharge is stable patient tolerated procedure well had no complications. Condition at Discharge: Condition at Discharge: Condition at discharge is stable, patient tolerated the procedure well and had no complications. MRAIANNA TELLEZ MD Jun 01, 2021 09:53
--- NOTE | 2021-06-01 09:53 | PDOC4 ---
Procedure Note: ICD 10 Code: ICD 10 Code: M54.16 M4 8.07 Procedure Note: Patient was consented for lumbar epidural steroid injection with fluoroscopic guidance. Risks were discussed including but not limited to: Bleeding, infection, possibility of epidural hematoma and subsequent neurological compromise, dural puncture, headaches, spinal cord and/or nerve damage, side effects of steroid medication, and poor results regarding pain control. Patient understands and wished to proceed. Procedure is lumbar epidural steroid injection under local anesthetic using sterile prep and drape at the L4-5 level using C-arm fluoroscopic guidance in both AP and lateral views medications injected is 120 mg Depo-Medrol +10mL preservative-free normal saline and 2 mL contrast- condition at discharge is stable patient tolerated procedure well had no complications. MARIANNA TELLEZ MD Jun 01, 2021 09:53
== END | disposition home or self-care (01) ==
LOC: PNCL 09:15
PROVIDERS: ATTEND Anesthesiology
DX: M51.16 Intervertebral disc disorders with radiculopathy, lumbar region (principal); M48.061 Spinal stenosis, lumbar region without neurogenic claudication; Z79.84 Long term (current) use of oral hypoglycemic drugs; Z79.899 Other long term (current) drug therapy
CPT/HCPCS: 62323; J1030; J1040; Q9965

== ENCOUNTER → 2021-09-09 | Outpatient (CLI) | payer MEDICARE ==
[~2021-09-09] MED LIST changes: +ASPI-630 PO
--- NOTE | 2021-09-09 13:54 | PDOC ---
Progress Note - Pain Clinic Date of Service: DOS: DATE: 09/09/21 TIME: 13:51 Diagnosis: Dx: Lumbar radiculopathy with lumbar degenerative disc disease and lumbar spinal stenosis History or Present Illness: HPI: 80-year-old female returns for follow-up status post lumbar epidural steroid injections most recently June 01, 2021. Patient reports about 60% improvement overall still with pain in the low back and the right lower extremity. Patient reports he was increased activity greater ease and comfort walking greater dist ances doing household activities greater ease and comfort as well as travel with greater ease patient rates her pain now returning as a 5 at all times average worst and least over the past week in the low back the right lower extremity posterior gluteus lateral thigh anterior thigh medial thigh and across the low back. Patient reports becoming more fatigued with standing in a stationary position. Patient reports walking is difficult as well but standing is the worst as far as the pain goes. Pain scribes a sharp and aching dull cramping can be stabbing can be constant or severe in the low back and the right leg as well. Patient reports no bowel or bladder incontinence no loss of motor function but again significant fatigability in the right lower extremity. Physical Exam: VS: Blood pressure is 139/83 pulse 99 respirations 18 temperature 98.2 F height is 5 feet 2 inches weight is 148 pounds. PE: PHYSICAL EXAMINATION: GENERAL: The patient is awake, alert, oriented, appropriate, very pleasant in demeanor HEENT: Shows normocephalic, atraumatic. Extraocular movements are intact and symmetrical. Oral cavity: Mucous membranes are moist and pink. NECK: Shows anterior throat supple without palpable lymphadenopathy noted. Swallow reflex is symmetrical. CHEST: Shows normal on inspection. Breath sounds are clear bilaterally. HEART: Shows S1, S2 clear. No murmurs auscultated. ABDOMEN: Soft, nontender, nondistended, obese. No palpable organomegaly is noted. BACK: Shows spine grossly in the midline. Normal-appearing cervical lordotic curvature. There is slightly increased thoracic kyphosis, some minor flattening of the lumbar lordotic curvature. Lumbar paraspinous muscles show symmetrical on inspection, on palpation shows some moderate tenderness diffusely throughout the upper, middle and lower distribution of the paraspinous muscles, but without specific trigger points, without radiation of pain. The patient has good rotational motion of the lumbar spine, both laterally as well as extension and flexion without significant difficulty. EXTREMITIES: Lower extremities show deep tendon reflexes 1 to in the patellar and tendo calcaneus tendons. Motor exam is 5 on a scale of 5 with right dorsiflexion, extension, quadriceps and hamstring flexion and 5/5 on the left. Peripheral pulses are 1 posterior tibial. No peripheral edema is noted bilaterally. Lower extremities are warm and dry to touch, equal in color and appearance. SKIN: Shows warm and dry, good turgor. No edema. No sores, rashes or bruising throughout. Procedure: Procedure: Options were discussed with the patient. Patient's old chart was reviewed as her current medication regimen updated current review of systems updated today as well. We will proceed with a lumbar epidural steroid injection today with fluoroscopic guidance risks were discussed including but not limited to: Bleeding, infection, possibility of epidural hematoma and subsequent neurological compromise, dural puncture, headaches, spinal cord and/or nerve damage, side effects of steroid medication, and poor results regarding pain control. Patient understands and wished to proceed. Patient return to the clinic in approximately 2 weeks for follow-up, was counseled return appointment, activity level, and side effects aware of. Medication Injected: Med Injected: Procedure is lumbar epidural steroid injection under local anesthetic using sterile prep and drape at the L4-5 level using C-arm fluoroscopic guidance in both AP and lateral views medications injected is 120 mg Depo-Medrol +10mL preservative-free normal saline and 2 mL contrast- condition at discharge is stable patient tolerated procedure well had no complications. Condition at Discharge: Condition at Discharge: Condition at discharge stable, patient tolerated procedure well and had no complications. MARIANNA TELLEZ MD Sep 09, 2021 13:54
--- NOTE | 2021-09-09 13:55 | PDOC4 ---
Procedure Note: ICD 10 Code: ICD 10 Code: M54.16 M4 8.06 M51.36 Procedure Note: Patient was consented for lumbar epidural steroid injection with fluoroscopic guidance. Risks were discussed including but not limited to: Bleeding, infection, possibility of epidural hematoma and subsequent neurological compromise, dural puncture, headaches, spinal cord and/or nerve damage, side effects of steroid medication, and poor results regarding pain control. Patient understands and wished to proceed. Procedure is lumbar epidural steroid injection under local anesthetic using ric rile prep and drape at the L4-5 level using C-arm fluoroscopic guidance in both AP and lateral views medications injected is 120 mg Depo-Medrol +10mL preservative-free normal saline and 2 mL contrast- condition at discharge is stable patient tolerated procedure well had no complications. MARIANNA TELLEZ MD Sep 09, 2021 13:55
== END | disposition home or self-care (01) ==
LOC: PNCL 13:11
PROVIDERS: ATTEND Anesthesiology
DX: M51.16 Intervertebral disc disorders with radiculopathy, lumbar region (principal); M48.061 Spinal stenosis, lumbar region without neurogenic claudication; Z79.82 Long term (current) use of aspirin; Z79.84 Long term (current) use of oral hypoglycemic drugs; Z79.899 Other long term (current) drug therapy
CPT/HCPCS: 62323; J1030; J1040; Q9965

== ENCOUNTER → 2021-10-09 | Outpatient (CLI) | payer MEDICARE ==
--- NOTE | 2021-10-09 10:17 | PDOC ---
Progress Note - Pain Clinic Date of Service: DOS: DATE: 10/09/21 TIME: 10:14 Diagnosis: Dx: Lumbar radiculopathy with lumbar degenerative disease and lumbar spinal stenosis History or Present Illness: HPI: 80-year-old female returns for follow-up status post lumbar neurosurgeon x1. Patient reports doing very well with her right leg doing much better but now her left leg is the main problem with pain rating the posterior gluteus posterior lateral thigh lateral anterior thigh into the lower leg medially patient reports her right leg too much better still pain across the low back but much improved patient reports is a 6 on scale 10 is worse in the past week 6 on average for its least is a 6 today patient reports no new motor or sensory deficits but her left leg is becoming more painful point traditionally it was her right leg it was giving her muscle problem patient describes as sharp and aching burning in the back radiating can be severe with standing standing still for prolonged periods patient reports no difficulty with sleeping at night is a feels much better sitting or laying down. Patient reports no bowel or bladder incontinence. Physical Exam: VS: Blood pressure is 142/85 pulse 93 respirations 20 temperature is 98.8 F height is 5 foot 2 inches weight is 144 pounds. PE: PHYSICAL EXAMINATION: GENERAL: The patient is awake, alert, oriented, appropriate, very pleasant in demeanor HEENT: Shows normocephalic, atraumatic. Extraocular movements are intact and symmetrical. Oral cavity: Mucous membranes moist and pink. NECK: Shows anterior throat supple without palpable lymphadenopathy noted. Swallow reflex symmetrical. CHEST: Shows normal on inspection. Breath sounds are clear bilaterally, no rales or rhonchi. HEART: Shows S1, S2 clear. No murmurs auscultated. ABDOMEN: Soft, nontender, nondistended, obese. No palpable organomegaly is noted. BACK: Shows spine grossly in the midline. Normal-appearing cervical lordotic curvature. There is slightly increased thoracic kyphosis, some minor flattening of the lumbar lordotic curvature. Lumbar paraspinous muscles show symmetrical on inspection, on palpation shows some moderate tenderness diffusely throughout the upper, middle and lower distribution of the paraspinous muscles, but without specific trigger points, without radiation of pain. The patient has good rotational motion of the lumbar spine, both laterally as well as extension and flexion without significant difficulty. No tenderness over the spinous processes, sacrum or sacroiliac regions. EXTREMITIES: Lower extremities show deep tendon reflexes 1 in the patellar and tendo calcaneus tendons. Motor exam is 5 on a scale of 5 with right dorsiflexion, extension, quadriceps and hamstring flexion and 5/5 on the left. Peripheral pulses are 1+ posterior tibial. No peripheral edema is noted bilaterally. Lower extremities are warm and dry to touch, equal in color and appearance. SKIN: Shows warm and dry, good turgor. No edema. No sores, rashes or bruising throughout. Procedure: Procedure: Options discussed with patient. Patient chart reviews her current medication regimen updated current review of systems updated today as well. We will proceed with a lumbar epidural steroid injection today with fluoroscopic guidance. Risks were discussed including but not limited to: Bleeding, infection, possibility of epidural hematoma and subsequent neurological compromise, dural puncture, headaches, spinal cord and/or nerve damage, side effects of steroid medication, and poor results regarding pain control. Patient understands and wished to proceed. Patient return to clinic in approximate 2 weeks for follow-up, was counseled as return appointment, activity level, and side effect to be aware of. Medication Injected: Med Injected: Procedure is lumbar epidural steroid injection under local anesthetic using sterile prep and drape at the L4-5 level using C-arm fluoroscopic guidance in both AP and lateral views medications injected is 120 mg Depo-Medrol +10mL preservative-free normal saline and 2 mL contrast- condition at discharge is stable patient tolerated procedure well had no complications. Condition at Discharge: Condition at Discharge: Condition at discharge stable, patient tolerated seizure well and had no complications. MARIANNA TELLEZ MD Oct 09, 2021 10:17
--- NOTE | 2021-10-09 10:18 | PDOC4 ---
Procedure Note: ICD 10 Code: ICD 10 Code: M54.16 M51.36 M4 8.06 Procedure Note: Patient was consented for lumbar epidural steroid injection with fluoroscopic guidance. Risks were discussed including but not limited to: Bleeding, infection, possibility of epidural hematoma and subsequent neurological compromise, dural puncture, headaches, spinal cord and/or nerve damage, side effects of steroid medication, and poor results regarding pain control. Patient understands and wished to proceed. Procedure is lumbar epidural steroid injection under local anesthetic using ric rile prep and drape at the L4-5 level using C-arm fluoroscopic guidance in both AP and lateral views medications injected is 120 mg Depo-Medrol +10mL preservative-free normal saline and 2 mL contrast- condition at discharge is stable patient tolerated procedure well had no complications. MARIANNA TELLEZ MD Oct 09, 2021 10:18
== END | disposition home or self-care (01) ==
LOC: PNCL 09:25
PROVIDERS: ATTEND Anesthesiology
DX: M51.16 Intervertebral disc disorders with radiculopathy, lumbar region (principal); M48.061 Spinal stenosis, lumbar region without neurogenic claudication; Z79.82 Long term (current) use of aspirin; Z79.84 Long term (current) use of oral hypoglycemic drugs; Z79.899 Other long term (current) drug therapy
CPT/HCPCS: 62323; J1030; J1040; Q9965

== ENCOUNTER → 2021-11-30 | Outpatient (CLI) | payer BC ==
[~2021-11-30] MED LIST changes: -IOHEXOL 180 MG/ML 10 ML VIAL. ONE; -methylPREDNISolone ACETATE 40 MG/ML VIAL. ONE; -methylPREDNISolone ACETATE 80 MG/ML VIAL. ONE
--- NOTE | 2021-11-30 11:00 | PDOC ---
Progress Note - Pain Clinic Date of Service: DOS: DATE: 11/30/21 TIME: 10:56 Diagnosis: Dx: Lumbar radiculopathy with lumbar degenerative disc disease and lumbar spinal stenosis History or Present Illness: HPI: 80-year-old female with history of low back and right lower extremity pain status post lumbar epidural steroid injection last seen October 09, 2021 patient did very well with about a 75% improvement in the low back and right lower extremity pain patient reports pain is returning now over the past week or so in the low back and the right lower extremity posterior gluteus posterior thigh posterior lateral thigh anterior thigh medial thigh medial lower leg with some cramping on the right side as well patient reports is worse with walking and standing changing positions has had no motor loss but has significant fatigability in the right leg with ambulation and standing patient reports initially she was doing much better with distance walking doing household activities try with much greater ease and comfort and increasing her activity with much greater ease and comfort overall also is decreasing the amount of tramadol that she was taking significantly down to only 2 to 3 days now she is taking it daily over the past week or so secondary to increase in pain patient reports no loss of motor function but significant fatigability once again in the right lower extremity. Patient rates her pain as 8 on scale 10 is worst 8 on average and a 5 its least is a 5 today. Patient reports better with sitting or laying down generally is not awaken her from sleep at night most nights. She reports no bowel or bladder incontinence. Physical Exam: VS: Blood pressure is 147/82 pulse 90 respirations are 18 temperature 90 continues Fahrenheit weight is 147 pounds PE: PHYSICAL EXAMINATION: GENERAL: The patient is awake, alert, oriented, appropriate, very pleasant in demeanor HEENT: Shows normocephalic, atraumatic. Extraocular movements are intact and symmetrical. Oral cavity: Mucous membranes moist and pink. NECK: Shows anterior throat supple without palpable lymphadenopathy noted. Swallow reflex symmetrical. CHEST: Shows normal on inspection. Breath sounds are clear bilaterally, distant but no rales or rhonchi. HEART: Shows S1, S2 clear. No murmurs auscultated. ABDOMEN: Soft, nontender, nondistended. No palpable organomegaly is noted. BACK: Shows spine grossly in the midline. Normal-appearing cervical lordotic curvature. There is increased thoracic kyphosis, some flattening of the lumbar lordotic curvature. Lumbar paraspinous muscles show symmetrical on inspection, on palpation shows some moderate tenderness diffusely throughout the upper, middle and lower distribution of the paraspinous muscles, but without specific trigger points, without radiation of pain. The patient has good rotational motion of the lumbar spine, both laterally as well as extension and flexion without significant difficulty. No tenderness over the spinous processes, sacrum or sacroiliac regions. EXTREMITIES: Lower extremities show deep tendon reflexes 1+ in the patellar and tendo calcaneus tendons. Motor exam is 4 on a scale of 5 with right dorsiflexion, extension, quadriceps and hamstring flexion and 5/5 on the left. Peripheral pulses are 1+ posterior tibial. No peripheral edema is noted bilaterally. Lower extremities are warm and dry. SKIN: Shows warm and dry, good turgor. No edema. No sores, rashes or bruising throughout. Procedure: Procedure: Options were discussed with the patient. Patient's chart was reviewed as her current medication regimen updated current review of systems updated today as well. We will preauthorize patient for lumbar epidural steroid injection she did very well for last injection increase activity and decreased medication use but with the pain returning the L4-5 dermatomal distribution in the right lower extremity. Once approved, patient will return for translaminar approach L4-5 level lumbar epidural steroid injection with fluoroscopic guidance. In the meantime, patient continue with stretching strength exercises walking and stretching daily as tolerated as well as oral analgesics as currently. Medication Injected: Med Injected: None Condition at Discharge: Condition at Discharge: Condition at discharge is stable. MARIANNA TELLEZ MD Nov 30, 2021 11:00
== END | disposition home or self-care (01) ==
LOC: PNCL 10:15
PROVIDERS: ATTEND Anesthesiology
DX: M51.16 Intervertebral disc disorders with radiculopathy, lumbar region (principal); M48.061 Spinal stenosis, lumbar region without neurogenic claudication; Z79.82 Long term (current) use of aspirin; Z79.84 Long term (current) use of oral hypoglycemic drugs; Z79.899 Other long term (current) drug therapy
CPT/HCPCS: 99212; G0463

== ENCOUNTER → 2022-02-03 | Outpatient (CLI) | payer BC ==
--- NOTE | 2022-02-03 15:24 | PDOC ---
Progress Note - Pain Clinic Date of Service: DOS: DATE: 02/03/22 TIME: 15:19 Diagnosis: Dx: Lumbar radiculopathy with lumbar degenerative disc disease and lumbar spinal stenosis History or Present Illness: HPI: Telephone visit today with patient identity verified with full identification as well as full date of , total time spent 12 minutes, telephone voice only. 81-year-old female via telephone visit today for follow-up after second lumbar epidural steroid injection which was October 09, 2021, approximately 4 months ago, patient reports she did very well with about 75% improvement in the low back and right lower extremity with pain returning over the past week or so in the low back and the right lower extremity posterior gluteus posterior thigh posterior lateral thigh and anterior medial thigh with walking standing change in position but is been sleeping better doing much better distance walking doing household activities traveling with greater ease and comfort as well she was decreasing the amount of tramadol that she is taking down to only 1 or 2 but is now increasing it over the past week or so secondary to increase in pain patient reports her pain is an 8 on scale 10 is worst 8 on average 5 its least patient reports is much better with sitting or laying down does not generally awaken her from sleep most nights no bowel or bladder incontinence reported as well. Patient reports he continues to do stretching strength exercises as she has learned from physical therapy many series of therapies over the years and still continues to do those daily. Patient is also trying to walk daily as best as she can tolerate but is becoming more difficult now over the past week or so as the pain is beginning to return. We discussed options with the patient and she would like to proceed with an additional epidural steroid injection, she is done very well with these in the past. We will wait for preauthorization with her return provider, once obtained we will have her return for a translaminar approach L4-5 level lumbar epidural steroid injection with fluoroscopic guidance. In meantime, patient continue with stretching strength exercises daily as well as walking as tolerated and oral analgesics as currently as necessary. Physical Exam: PE: MARIANNA TELLEZ MD Feb 03, 2022 15:24
== END | disposition home or self-care (01) ==
LOC: PNCL 15:18
PROVIDERS: ATTEND Anesthesiology
DX: M51.16 Intervertebral disc disorders with radiculopathy, lumbar region (principal); M48.061 Spinal stenosis, lumbar region without neurogenic claudication; Z79.82 Long term (current) use of aspirin; Z79.84 Long term (current) use of oral hypoglycemic drugs; Z79.899 Other long term (current) drug therapy
CPT/HCPCS: 99212; G0463

== ENCOUNTER → 2022-02-10 | Outpatient (CLI) | payer BC ==
[~2022-02-10] MED LIST changes: +IOHEXOL 180 MG/ML 10 ML VIAL. ONE; +methylPREDNISolone ACETATE 40 MG/ML VIAL. ONE; +methylPREDNISolone ACETATE 80 MG/ML VIAL. ONE
--- NOTE | 2022-02-10 15:16 | PDOC ---
Progress Note - Pain Clinic Date of Service: DOS: DATE: 02/10/22 TIME: 15:11 Diagnosis: Dx: Lumbar radiculopathy with lumbar degenerative disease and lumbar spinal stenosis History or Present Illness: HPI: 81-year-old female returns for follow-up status post lumbar epidural steroid injections most recently October 09, 2021. Patient reports she did very well after that injection with about 75% improvement now down about 50% improvement with pain in the low back and the right lower extremity posterior gluteus posterior lateral thigh lateral anterior thigh anteromedial thigh and medial lower leg patient reports he has increased pain in the leg and some weakness as well which is new for her is usually just painful but it reports that her legs been getting much more fatigued much more easily with the right leg she has not fallen she is stumbled several times since her last visit although has not fallen. Patient reports pain is increasing in the leg across the low back into the posterior gluteus and thigh as well patient reports is a 4 scale of 10 at all times worst least and average is a 4 today. Patient reports is better with sitting or laying down generally does not awaken her from sleep at night. Patient describes a stabbing aching in the back and radiating can be dull and tight alternating in the back and shooting in the right lower extremity with ambulation. Patient reports no bowel or bladder incontinence. Physical Exam: VS: Blood pressure is 137/82 pulse 81 respiration 16 temperature 98.5 F weight 149 pounds. PE: PHYSICAL EXAMINATION: GENERAL: The patient is awake, alert, oriented, appropriate, very pleasant in demeanor HEENT: Shows normocephalic, atraumatic. Extraocular movements are intact and symmetrical. Patient wearing eyeglasses. Oral cavity: Mucous membranes moist and pink. NECK: Shows anterior throat supple without palpable lymphadenopathy noted. Swallow reflex symmetrical. CHEST: Shows normal on inspection. Breath sounds are clear bilaterally. HEART: Shows S1, S2 clear. No murmurs auscultated. ABDOMEN: Soft, nontender, nondistended. No palpable organomegaly is noted. BACK: Shows spine grossly in the midline. Normal-appearing cervical lordotic curvature. There is moderately increased thoracic kyphosis, some mild flattening of the lumbar lordotic curvature. Lumbar paraspinous muscles show symmetrical on inspection, on palpation shows some moderate tenderness diffusely throughout the upper, middle and lower distribution of the paraspinous muscles, but without specific trigger points, without radiation of pain. The patient has good rotational motion of the lumbar spine, both laterally as well as extension and flexion without significant difficulty. No tenderness over the spinous processes, sacrum or sacroiliac regions. EXTREMITIES: Lower extremities show deep tendon reflexes 1 in the patellar and tendo calcaneus tendons. Motor exam is 4 on a scale of 5 with right dorsiflexion, extension, quadriceps and hamstring flexion and 5/5 on the left. Peripheral pulses are 1+ posterior tibial. No peripheral edema is noted bilaterally. Lower extremities are warm and dry to touch, equal in color and appearance. SKIN: Shows warm and dry, good turgor. No edema. No sores, rashes or bruising throughout. Procedure: Procedure: Options discussed with patient. Patient's old chart was viewed as her current m edication regimen updated current review of systems updated today as well. We will proceed with a lumbar epidural steroid injection today with fluoroscopic guidance. Risks were discussed including but not limited to: Bleeding, infection, possibility of epidural hematoma and subsequent neurological compromise, dural puncture, headaches, spinal cord and/or nerve damage, side effects of steroid medication, and poor results regarding pain control. Patient understands and wished to proceed. Patient will return to clinic in approximately 2 weeks for follow-up, was counseled as to return appointment, activity level, and side effect to be aware of. Medication Injected: Med Injected: Procedure is lumbar epidural steroid injection under local anesthetic using sterile prep and drape at the L4-5 level using C-arm fluoroscopic guidance in both AP and lateral views medications injected is 120 mg methylprednisolone +10mL preservative-free normal saline and 2 mL contrast- condition at discharge is stable patient tolerated procedure well had no complications. Condition at Discharge: Condition at Discharge: Condition at discharge stable, patient tolerated procedure well and had no complications. MARIANNA TELLEZ MD Feb 10, 2022 15:16
--- NOTE | 2022-02-10 15:17 | PDOC4 ---
Procedure Note: ICD 10 Code: ICD 10 Code: M54.16 M51.36 M4 8.06 Procedure Note: Patient was consented for lumbar epidural steroid injection with fluoroscopic guidance. Risks were discussed including but not limited to: Bleeding, infection, possibility of epidural hematoma and subsequent neurological compromise, dural puncture, headaches, spinal cord and/or nerve damage, side effects of steroid medication, and poor results regarding pain control. Patient understands and wished to proceed. Procedure is lumbar epidural steroid injection under local anesthetic using ric rile prep and drape at the L4-5 level using C-arm fluoroscopic guidance in both AP and lateral views medications injected is 120 mg methylprednisolone +10mL preservative-free normal saline and 2 mL contrast- condition at discharge is stable patient tolerated procedure well had no complications. MARIANNA TELLEZ MD Feb 10, 2022 15:17
== END | disposition home or self-care (01) ==
LOC: PNCL 14:26
PROVIDERS: ATTEND Anesthesiology
DX: M51.16 Intervertebral disc disorders with radiculopathy, lumbar region (principal); M48.061 Spinal stenosis, lumbar region without neurogenic claudication; Z79.82 Long term (current) use of aspirin; Z79.84 Long term (current) use of oral hypoglycemic drugs; Z79.899 Other long term (current) drug therapy
CPT/HCPCS: 62323; J1030; J1040; Q9965